=== PATIENT | female | born 1955 | race Caucasian/White ===

== ENCOUNTER 2018-03-11 05:30 | Inpatient (IN) ==
--- NOTE | 2018-03-11 06:18 | Emergency Department Note ---
Disposition Clinical Impression: Peripheral vascular disease of extremity with claudication, Abnormal ankle brachial index (GENO) Disposition: Admitted As Inpatient Condition: Fair Referrals: Emily Washington CNP [Primary Care Provider] - Forms: ED Satisfaction Letter Time of Disposition: 07:50 Extremity Problem HPI - General Chief complaint: ED Extremity Injury, Lower Stated complaint: leg pain both legs Time Seen by Provider: 03/11/18 06:06 Source: patient Limitations: no limitations Nursing Notes Reviewed: Yes Vital Signs Reviewed: Yes - History of Present Illness HPI Narrative: Alert and oriented nontoxic-appearing 63-year-old female presents for evaluation of worsening right lower extremity numbness, tingling, and pain. She has a history of peripheral vascular disease and claudication. In November 2017, this patient was seen by Dr. White for the same. Review of records indicates an aortogram that showed significant stenosis in both the right and left vasculature. Interventions were performed on the right however not on the left. She complains of worsening pain for the past one month but states that she has failed to discuss this problem with either her primary care provider or her vascular specialist, Dr. White. She also states a history of a left foot fracture that occurred approximately 4 weeks ago. She states that she had a mechanical fall which caused the fracture. She complains of persistent and yet worsening left knee pain ever since that fall. She denies any chest pain, shortness of breath, nausea, vomiting, abdominal pain, fever, or noticeable leg swelling/discoloration. Pt Subjective Complaint: extremity pain Onset (ago): month(s) (1) Consistency: Worsening Injury Location: left (knee), right (lower extremity) Pain Scale: 10 Quality: aching Radiation: distal Improves with: nothing Worsens with: range of motion, weight bearing, palpation Associated symptoms: Reports: denies other symptoms. Denies: chest pain, shortness of breath, abdominal pain, back pain, fever, swelling, redness Context: history of peripheral vascular disease - Related Data Home Medications Medication Instructions Recorded Confirmed Clopidogrel Bisulfate [Plavix] 75 mg PO DAILY 06/23/17 01/17/18 Cyanocobalamin (Vitamin B-12) 1,000 mg PO DAILY 06/23/17 01/17/18 [Vitamin B-12] Gabapentin [Neurontin] 400 mg PO BID 06/23/17 01/17/18 Lansoprazole [Prevacid] 30 mg PO DAILY 06/23/17 01/17/18 Metoprolol [Lopressor] 12.5 mg PO BID 06/23/17 01/17/18 Nitroglycerin [Nitrostat] 0.4 mg SL Q5-6MIN PRN 06/23/17 01/17/18 glyBURIDE [GlyBURIDE] 5 mg PO DAILY 06/23/17 01/17/18 Amlodipine Besylate 5 mg PO DAILY 11/17/17 01/17/18 Aspirin [Lo-Dose Aspirin EC] 81 mg PO DAILY 11/17/17 01/17/18 Dulaglutide [Trulicity] 0.75 mg SQ QWEEK 11/17/17 01/17/18 Duloxetine HCl [Cymbalta] 60 mg PO DAILY 11/17/17 01/17/18 Folic Acid 1 mg PO DAILY 11/17/17 01/17/18 HydrOXYzine Pamoate [Vistaril] 25 mg PO BID PRN 11/17/17 01/17/18 Insulin Glargine,Hum.rec.anlog 80 units SQ DAILY 11/17/17 01/17/18 [Toujeo Solostar] Isosorbide MONOnitrate (24 HR) 60 mg PO DAILY 11/17/17 01/17/18 [Imdur] Lisinopril [Zestril] 20 mg PO DAILY 11/17/17 01/17/18 Melatonin 10 mg PO HS 11/17/17 01/17/18 [place]-3/Dha/Epa/Fish Oil [Fish Oil 1 each PO DAILY 11/17/17 01/17/18 1,000 mg Softgel] Omeprazole [PriLOSEC] 20 mg PO DAILY 11/17/17 01/17/18 Pramipexole Di-HCl [Pramipexole 0.5 mg PO HS 11/17/17 01/17/18 Dihydrochloride] Previous Rx's Medication Instructions Recorded HYDROcodone/Acet 5/325 mg [[place] 1 tab PO Q4H PRN 2 Days #10 tab 01/17/18 5-325 mg] Allergies Allergy/AdvReac Type Severity Reaction Status Date / Time metformin [From Glucophage] Allergy Hives Verified 03/11/18 08:11 Rosiglitazone [From Avandia] Allergy Hives Verified 03/11/18 08:11 simvastatin [From Zocor] Allergy Hives Verified 03/11/18 08:11 All systems ED: reviewed and negative except as stated. Constitutional: Denies: fever, chills, weakness, weight change Eyes: Denies: eye pain, eye discharge, vision change ENT ED: Denies: ear pain, throat pain, dental pain, hearing loss, epistaxis, congestion, dysphagia Cardiovascular: Denies: chest pain, palpitations, dyspnea on exertion, edema, syncope Respiratory: Denies: cough, dyspnea, wheezes, hemoptysis, stridor Gastrointestinal: Denies: abdominal pain, nausea, vomiting, diarrhea, constipation, hematemesis, melena, hematochezia Genitourinary: Denies: dysuria, frequency, hematuria, discharge Musculoskeletal: Reports: as per HPI, arthralgia (Left knee pain), myalgia ( Right lower extremity pain). Denies: back pain, neck pain Integumentary: Denies: rash, abrasion, lesions Neurological: Reports: as per HPI, numbness (Right lower extremity numbness). Denies: headache, weakness, paresthesias, confusion, abnormal gait, vertigo Psychiatric: Denies: anxiety, depression, suicidal thoughts, homicidal thoughts , auditory hallucinations, visual hallucinations Endocrine: Denies: fatigue Hematological/Lymphatic: Denies: easy bleeding, easy bruising Allergic/Immunologic: Denies: facial swelling, urticaria Past Medical History - Past Medical History Attestation: Yes The following information was validated with the patient. Source: patient, nursing notes reviewed Medical history: Reports: arthritis, coronary artery disease, CVA, diabetes, GERD, hyperlipidemia, hypertension, myocardial infarction, peripheral artery disease Surgical history: Reports: angioplasty/stent, cholecystectomy, orthopedic, other Psychiatric history: Reports: anxiety [place] [employer] history: Reports: bilateral tubal ligation - Social History Smoking Status: Never smoker Smokeless Tobacco Status: No Alcohol use: Reports: none Drug use: Reports: none Physical Exam - General Limitations: no limitations General appearance: alert - Head Head exam: atraumatic, normocephalic, normal inspection - Eye Eye exam: Present: normal appearance, PERRL, EOMI. Absent: nystagmus - ENT ENT exam: mucous membranes moist - Neck Neck exam: Present: normal inspection, full ROM, trachea midline - Chest Chest inspection: Present: normal inspection, symmetric chest wall rise - Respiratory Respiratory exam: Present: normal lung sounds bilaterally. Absent: respiratory distress, wheezes, stridor, accessory muscle use, prolonged expiratory phase - Cardiovascular Cardiovascular exam: Present: regular rate, normal rhythm, normal heart sounds - Abdominal Exam Abdominal exam: Present: soft, Non-Tender, normal bowel sounds - Expanded Lower Extremity Exam Knee exam: Present: tenderness (Left knee diffusely tender to palpation), pain with valgus, pain with varus, knee extension intact. Absent: full ROM (Range of motion limited by pain, left knee), swelling, deformity, crepitus, erythema, laxity with valgus, laxity with varus Lower leg exam: Present: tenderness (Right lower extremity diffusely tender to palpation without noticeable discoloration or swelling) Foot/toe exam: Present: tenderness (Left foot), tenderness at base of 5th metatarsal (Left foot) Neurovascular/Tendon exam: Present: normal capillary refill, pulse deficit. Absent: extremity cold to touch Gait: not tested/not observed - Back Exam Back exam: Present: normal inspection, full ROM. Absent: tenderness - Neurological Exam Neurological exam: Present: alert, oriented X3 - Psychiatric Psychiatric exam: Present: normal affect, normal mood - Skin Skin exam: Present: warm, dry, intact, normal color. Absent: rash, cyanosis, erythema, pallor Course Course Narrative: Review of records from 11/17/2017 shows that the patient had an abdominal and bilateral aortography with femoropopliteal revascularization by Dr. White. At that time, she had a lesion present in the right superficial femoral with 100% stenosis. An intervention was performed on this lesion. There was also a lesion in the left superficial femoral with 75% stenosis. No intervention was performed on this lesion. There is also a lesion in the left anterior tibial with 100% stenosis. No intervention was performed on that lesion. The patient was placed on Plavix. She states that she is faithful in taking her medications. [id number]: I spoke with Dr. Hagen, vascular surgeon on-call. He recommends placing the patient on a heparin drip, and admitted to the hospitalist service with vascular consult. He recommends against any further imaging at this time. 1485: I spoke with Dr. Archer of the hospitalist service. Dr. Archer has agreed to accept the patient for permission under their care for further treatment and pending vascular consultation. Vital Signs Temperature 97.4 F L 03/11/18 05:31 Pulse Rate 86 03/11/18 05:31 Respiratory Rate 18 03/11/18 05:31 Blood Pressure 179/82 03/11/18 05:31 O2 Sat by Pulse Oximetry 97 03/11/18 05:31 Temperature 97.4 F L 03/11/18 05:31 Pulse Rate 91 03/11/18 08:16 Respiratory Rate 20 03/11/18 08:16 Blood Pressure 122/50 03/11/18 08:16 O2 Sat by Pulse Oximetry 97 03/11/18 08:16 Oxygen Delivery Oxygen Delivery Room Air Extremity Problem, [place] - Medical Records Medical records reviewed: Yes I reviewed the patient's medical records. - Lab Data Lab results reviewed: Yes I reviewed the patient's lab results. Lab results narrative: Laboratory Last Values WBC 5.5 K/mcL (4.3-11.1) 03/11/18 06:33 RBC 4.51 M/mcL (3.82-4.97) 03/11/18 06:33 Hgb 13.4 g/dL (11.5-15.4) 03/11/18 06:33 Hct 40.2 % (35.3-44.9) 03/11/18 06:33 MCV 89.1 fL (83.0-100.0) 03/11/18 06:33 MCH 29.7 pg (28.0-33.3) 03/11/18 06:33 MCHC 33.3 g/dL (31.6-35.5) 03/11/18 06:33 RDW 14.1 % (11.5-14.5) 03/11/18 06:33 Plt Count 159 K/mcL (140-400) 03/11/18 06:33 MPV 10.8 fL (9.4-12.4) 03/11/18 06:33 Immature Gran % 0.0 % (0-4) 03/11/18 06:33 Seg Neutrophils % 40.0 % 03/11/18 06:33 Lymphocytes % 50.5 % 03/11/18 06:33 Monocytes % 6.1 % 03/11/18 06:33 Eosinophils % 2.5 % 03/11/18 06:33 Basophils % 0.9 % 03/11/18 06:33 Neutrophils # 2.2 K/mcL (1.6-8.9) 03/11/18 06:33 Lymphocytes # 2.8 K/mcL (0.6-4.6) 03/11/18 06:33 Monocytes # 0.3 K/mcL (0.0-1.3) 03/11/18 06:33 Eosinophils # 0.1 K/mcL (0.0-0.6) 03/11/18 06:33 Basophils # 0.1 K/mcL (0.0-0.2) 03/11/18 06:33 PT 11.5 Seconds (9.4-12.1) 03/11/18 06:33 INR 1.1 03/11/18 06:33 APTT 32.4 Seconds (26.0-36.0) 03/11/18 06:33 Sodium 134 mEq/L (136-145) L 03/11/18 06:33 Potassium 4.1 mEq/L (3.5-5.1) 03/11/18 06:33 Chloride 100 mEq/L (98-107) 03/11/18 06:33 Carbon Dioxide 29 mEq/L (23-29) 03/11/18 06:33 BUN 9 mg/dL (8-23) 03/11/18 06:33 Creatinine 0.61 mg/dL (0.60-1.20) 03/11/18 06:33 Est GFR ( Amer) > 60 (> 60) 03/11/18 06:33 Est GFR (Non-Af Amer) > 60 (> 60) 03/11/18 06:33 BUN/Creatinine Ratio 15 (6-26) 03/11/18 06:33 Glucose 337 mg/dL (70-105) H 03/11/18 06:33 Calculated Osmolality 290 (280-300) 03/11/18 06:33 Calcium 9.2 mg/dL (8.6-10.3) 03/11/18 06:33 Result diagrams: 03/11/18 06:33 03/11/18 06:33 Lab Results 03/11/18 03/11/18 03/11/18 Range/Units 06:33 06:33 06:33 WBC 5.5 (4.3-11.1) K/mcL RBC 4.51 (3.82-4.97) M/mcL Hgb 13.4 (11.5-15.4) g/dL Hct 40.2 (35.3-44.9) % MCV 89.1 (83.0-100.0) fL MCH 29.7 (28.0-33.3) pg MCHC 33.3 (31.6-35.5) g/dL RDW 14.1 (11.5-14.5) % Plt Count 159 (140-400) K/mcL MPV 10.8 (9.4-12.4) fL Immature Gran % 0.0 (0-4) % Seg Neutrophils % 40.0 % Lymphocytes % 50.5 % Monocytes % 6.1 % Eosinophils % 2.5 % Basophils % 0.9 % Neutrophils # 2.2 (1.6-8.9) K/mcL Lymphocytes # 2.8 (0.6-4.6) K/mcL Monocytes # 0.3 (0.0-1.3) K/mcL Eosinophils # 0.1 (0.0-0.6) K/mcL Basophils # 0.1 (0.0-0.2) K/mcL PT 11.5 (9.4-12.1) Seconds INR 1.1 APTT 32.4 (26.0-36.0) Seconds Sodium 134 L (136-145) mEq/L Potassium 4.1 (3.5-5.1) mEq/L Chloride 100 (98-107) mEq/L Carbon Dioxide 29 (23-29) mEq/L BUN 9 (8-23) mg/dL Creatinine 0.61 (0.60-1.20) mg/dL Est GFR ( Amer) > 60 (> 60) Est GFR (Non-Af Amer) > 60 (> 60) BUN/Creatinine Ratio 15 (6-26) Glucose 337 H (70-105) mg/dL Calculated Osmolality 290 (280-300) Calcium 9.2 (8.6-10.3) mg/dL - Radiology Data Radiology results reviewed: Yes I reviewed the patient's radiology results. Foot X-Ray 03/11/18 06:38 IMPRESSION: Nondisplaced fracture involving the base of the 5th metatarsal. The fracture lines are poorly defined suggesting a subacute injury. D/ / Suresh Broderick MD / Suresh Broderick MD Interpreting Provider: Suresh Broderick MD Knee X-Ray 03/11/18 06:38 IMPRESSION: No acute osseous abnormality of the left knee. D/ / Suresh Broderick MD / Suresh Broderick MD Interpreting Provider: Suresh Broderick MD
[2018-03-11] MEDS ORDERED: *HR* FentaNYL (PF) 100 MCG/2 ML VIAL IVP ONE (06:23)
[2018-03-11 06:42] LABS: Basophils # 0.1 K/mcL (0.0-0.2); Basophils % 0.9 %; Eosinophils # 0.1 K/mcL (0.0-0.6); Eosinophils % 2.5 %; Hematocrit 40.2 % (35.3-44.9); Hemoglobin 13.4 g/dL (11.5-15.4); Lymphocytes # 2.8 K/mcL (0.6-4.6); Lymphocytes % 50.5 %; Mean Corpuscular HGB Conc 33.3 g/dL (31.6-35.5); Mean Corpuscular Hemoglobin 29.7 pg (28.0-33.3); Mean Corpuscular Volume 89.1 fL (83.0-100.0); Mean Platelet Volume 10.8 fL (9.4-12.4); Monocytes # 0.3 K/mcL (0.0-1.3); Monocytes % 6.1 %; Neutrophils # 2.2 K/mcL (1.6-8.9); Platelet Count 159 K/mcL (140-400); Red Blood Count 4.51 M/mcL (3.82-4.97); Red Cell Distribution Width 14.1 % (11.5-14.5)
[2018-03-11 06:47] LABS: INR 1.1; Prothrombin Time 11.5 Seconds (9.4-12.1)
[2018-03-11 06:49] LABS: Activated Partial Thrombo Time 32.4 Seconds (26.0-36.0)
[2018-03-11 06:58] LABS: BUN/Creatinine Ratio 15 (6-26); Blood Urea Nitrogen 9 mg/dL (8-23); Calcium 9.2 mg/dL (8.6-10.3); Carbon Dioxide 29 mEq/L (23-29); Chloride 100 mEq/L (98-107); Glucose 337 mg/dL (70-105); Osmolality,Calculated 290 (280-300); Potassium 4.1 mEq/L (3.5-5.1); Sodium 134 mEq/L (136-145); eGFR For African Americans > 60 (> 60); eGFR For Non-African Americans > 60 (> 60)
--- NOTE | 2018-03-11 07:07 | Emergency Department Note ---
Disposition Clinical Impression: Peripheral vascular disease of extremity with claudication, Abnormal ankle brachial index (GENO) Disposition: Admitted As Inpatient Condition: Fair General Adult HPI - General Chief complaint: ED Extremity Injury, Lower Stated complaint: leg pain both legs Time Seen by Provider: 03/11/18 06:06 Source: patient Limitations: no limitations - History of Present Illness Pain Scale: 7 - Related Data Home Medications Medication Instructions Recorded Confirmed Clopidogrel Bisulfate [Plavix] 75 mg PO DAILY 06/23/17 01/17/18 Cyanocobalamin (Vitamin B-12) 1,000 mg PO DAILY 06/23/17 01/17/18 [Vitamin B-12] Gabapentin [Neurontin] 400 mg PO BID 06/23/17 01/17/18 Lansoprazole [Prevacid] 30 mg PO DAILY 06/23/17 01/17/18 Metoprolol [Lopressor] 12.5 mg PO BID 06/23/17 01/17/18 Nitroglycerin [Nitrostat] 0.4 mg SL Q5-6MIN PRN 06/23/17 01/17/18 glyBURIDE [GlyBURIDE] 5 mg PO DAILY 06/23/17 01/17/18 Amlodipine Besylate 5 mg PO DAILY 11/17/17 01/17/18 Aspirin [Lo-Dose Aspirin EC] 81 mg PO DAILY 11/17/17 01/17/18 Dulaglutide [Trulicity] 0.75 mg SQ QWEEK 11/17/17 01/17/18 Duloxetine HCl [Cymbalta] 60 mg PO DAILY 11/17/17 01/17/18 Folic Acid 1 mg PO DAILY 11/17/17 01/17/18 HydrOXYzine Pamoate [Vistaril] 25 mg PO BID PRN 11/17/17 01/17/18 Insulin Glargine,Hum.rec.anlog 80 units SQ DAILY 11/17/17 01/17/18 [Toujeo Solostar] Isosorbide MONOnitrate (24 HR) 60 mg PO DAILY 11/17/17 01/17/18 [Imdur] Lisinopril [Zestril] 20 mg PO DAILY 11/17/17 01/17/18 Melatonin 10 mg PO HS 11/17/17 01/17/18 [place]-3/Dha/Epa/Fish Oil [Fish Oil 1 each PO DAILY 11/17/17 01/17/18 1,000 mg Softgel] Omeprazole [PriLOSEC] 20 mg PO DAILY 11/17/17 01/17/18 Pramipexole Di-HCl [Pramipexole 0.5 mg PO HS 11/17/17 01/17/18 Dihydrochloride] Previous Rx's Medication Instructions Recorded HYDROcodone/Acet 5/325 mg [[place] 1 tab PO Q4H PRN 2 Days #10 tab 01/17/18 5-325 mg] Allergies Allergy/AdvReac Type Severity Reaction Status Date / Time metformin [From Glucophage] Allergy Hives Verified 03/11/18 08:11 Rosiglitazone [From Avandia] Allergy Hives Verified 03/11/18 08:11 simvastatin [From Zocor] Allergy Hives Verified 03/11/18 08:11 Constitutional: Denies: fever, chills, weakness, weight change Eyes: Denies: eye pain, eye discharge, vision change ENT ED: Denies: ear pain, throat pain, dental pain, hearing loss, epistaxis, congestion, dysphagia Cardiovascular: Denies: chest pain, palpitations, dyspnea on exertion, edema, syncope Respiratory: Denies: cough, dyspnea, wheezes, hemoptysis, stridor Gastrointestinal: Denies: abdominal pain, nausea, vomiting, diarrhea, constipation, hematemesis, melena, hematochezia Genitourinary: Denies: dysuria, frequency, hematuria, discharge Musculoskeletal: Reports: as per HPI, arthralgia (Left knee pain), myalgia ( Right lower extremity pain). Denies: back pain, neck pain Integumentary: Denies: rash, abrasion, lesions Neurological: Reports: as per HPI, numbness (Right lower extremity numbness). Denies: headache, weakness, paresthesias, confusion, abnormal gait, vertigo Psychiatric: Denies: anxiety, depression, suicidal thoughts, homicidal thoughts , auditory hallucinations, visual hallucinations Endocrine: Denies: fatigue Hematological/Lymphatic: Denies: easy bleeding, easy bruising Allergic/Immunologic: Denies: facial swelling, urticaria Past Medical History - Past Medical History Medical history: Reports: arthritis, coronary artery disease, CVA, diabetes, GERD, hyperlipidemia, hypertension, myocardial infarction, peripheral artery disease Surgical history: Reports: angioplasty/stent, cholecystectomy, orthopedic, other Psychiatric history: Reports: anxiety [employer] [employer] history: Reports: bilateral tubal ligation - Social History Smoking Status: Never smoker Smokeless Tobacco Status: No Alcohol use: Reports: none Drug use: Reports: none Physical Exam - General Limitations: no limitations General appearance: alert Course Vital Signs Temperature 97.4 F L 03/11/18 05:31 Pulse Rate 86 03/11/18 05:31 Respiratory Rate 18 03/11/18 05:31 Blood Pressure 179/82 03/11/18 05:31 O2 Sat by Pulse Oximetry 97 03/11/18 05:31 Temperature 97.6 F 03/11/18 09:33 Pulse Rate 86 03/11/18 09:33 Respiratory Rate 16 03/11/18 09:33 Blood Pressure 134/68 03/11/18 09:33 O2 Sat by Pulse Oximetry 98 03/11/18 09:33 Oxygen Delivery Oxygen Delivery Nasal Cannula Medical Decision Making - Lab Data Result diagrams: 03/11/18 06:33 03/11/18 06:33 Lab Results 03/11/18 03/11/18 03/11/18 Range/Units 06:33 06:33 06:33 WBC 5.5 (4.3-11.1) K/mcL RBC 4.51 (3.82-4.97) M/mcL Hgb 13.4 (11.5-15.4) g/dL Hct 40.2 (35.3-44.9) % MCV 89.1 (83.0-100.0) fL MCH 29.7 (28.0-33.3) pg MCHC 33.3 (31.6-35.5) g/dL RDW 14.1 (11.5-14.5) % Plt Count 159 (140-400) K/mcL MPV 10.8 (9.4-12.4) fL Immature Gran % 0.0 (0-4) % Seg Neutrophils % 40.0 % Lymphocytes % 50.5 % Monocytes % 6.1 % Eosinophils % 2.5 % Basophils % 0.9 % Neutrophils # 2.2 (1.6-8.9) K/mcL Lymphocytes # 2.8 (0.6-4.6) K/mcL Monocytes # 0.3 (0.0-1.3) K/mcL Eosinophils # 0.1 (0.0-0.6) K/mcL Basophils # 0.1 (0.0-0.2) K/mcL PT 11.5 (9.4-12.1) Seconds INR 1.1 APTT 32.4 (26.0-36.0) Seconds Sodium 134 L (136-145) mEq/L Potassium 4.1 (3.5-5.1) mEq/L Chloride 100 (98-107) mEq/L Carbon Dioxide 29 (23-29) mEq/L BUN 9 (8-23) mg/dL Creatinine 0.61 (0.60-1.20) mg/dL Est GFR ( Amer) > 60 (> 60) Est GFR (Non-Af Amer) > 60 (> 60) BUN/Creatinine Ratio 15 (6-26) Glucose 337 H (70-105) mg/dL Calculated Osmolality 290 (280-300) Calcium 9.2 (8.6-10.3) mg/dL Critical Care Time Critical Care Time: Yes Total Critical Care Time: 30 Attestation: The high probability of a clinically significant, sudden or life threatening deterioration of the [] system(s) required my full and direct attention, intervention and personal management. The aggregate critical care time was [] minutes. This time is in addition to time spent performing reported procedures but includes the following: [] Data Review and interpretation [] Patient assessment and monitoring of vital signs [] Documentation [] Medication orders and management Attestation Statement - Attestation Attestation: For this encounter, I have reviewed the OCEANOLOGIST or PA documentation, treatment plan, and medical decision making; and I have had face to face time with this patient. [id number] time provided Patient arrives with leg pain. History of previous angioplasty due to peripheral arterial disease. Appears in no acute distress on exam. Evaluated in conjunction with the mid-level provider Hang Huerta
[2018-03-11] MEDS ORDERED: *HR* Heparin 5,000 UNIT/ML VIAL IVP ONE (07:49)
[2018-03-11] MEDS ORDERED: *HR* Heparin 5,000 UNIT/ML VIAL IVP PRN ×2 (07:49)
[2018-03-11] MEDS: Heparin 25,000 UNIT/500 ML D5W 25,000 UNIT/500 ML BAG IVC SCH (08:37)
--- NOTE | 2018-03-11 09:57 | Vascular/Endovasc Consult Note ---
Date of Encounter: 03/11/18 Time of Encounter: 09:40 Assessment and Plan (1) Atherosclerosis of right lower extremity with rest pain Current Visit: Yes Status: Acute Qualifiers: Peripheral atherosclerosis artery type: [place] artery Qualified Code(s): I70.221 - Atherosclerosis of [place] arteries of extremities with rest pain, right leg - History of Present Illness Consult date: 03/11/18 Requesting physician: Triston Archer Consult reason: Ischemic rest pain right foot. History of present illness: Ms. Ruiz is a 63 year old female with a 2 to three-week history of progressive ischemic rest pain of her right foot. She has undergone prior endovascular intervention for similar symptomatology. 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 She has long-standing diabetes which is fairly uncontrolled. She is currently on dual antiplatelet therapy and a daily statin. I have placed the patient on a heparin drip and presume her symptoms will slightly improved somewhat. Dr. White will be around at the start of this week and decide as to what further intervention need be performed. Should she have increasing progressive symptoms or loss of Doppler signals today, I would be more than happy to consider immediate intervention. Past Med Surg Social Fam HX - Past Medical History Medical history: arthritis, coronary artery disease, CVA, diabetes, GERD, hyperlipidemia, hypertension, myocardial infarction, peripheral artery disease Psychiatric history: anxiety - Past Surgical History Surgical History: angioplasty/stent, cholecystectomy, orthopedic, other - Social History Smoking Status: Never smoker Smokeless Tobacco Status: No Alcohol use: none Drug use: none Medications and Allergies Clopidogrel Bisulfate [Plavix] 75 mg PO DAILY 06/23/17 [History] Cyanocobalamin (Vitamin B-12) [Vitamin B-12] 1,000 mg PO DAILY 06/23/17 [History ] Gabapentin [Neurontin] 400 mg PO BID 06/23/17 [History] Lansoprazole [Prevacid] 30 mg PO DAILY 06/23/17 [History] Metoprolol [Lopressor] 12.5 mg PO BID 06/23/17 [History] Nitroglycerin [Nitrostat] 0.4 mg SL Q5-6MIN PRN 06/23/17 [History] glyBURIDE [GlyBURIDE] 5 mg PO DAILY 06/23/17 [History] Amlodipine Besylate 5 mg PO DAILY 11/17/17 [History] Aspirin [Lo-Dose Aspirin EC] 81 mg PO DAILY 11/17/17 [History] Dulaglutide [Trulicity] 0.75 mg SQ QWEEK 11/17/17 [History] Duloxetine HCl [Cymbalta] 60 mg PO DAILY 11/17/17 [History] Folic Acid 1 mg PO DAILY 11/17/17 [History] HydrOXYzine Pamoate [Vistaril] 25 mg PO BID PRN 11/17/17 [History] Insulin Glargine,Hum.rec.anlog [Toujeo Solostar] 80 units SQ DAILY 11/17/17 [ History] Isosorbide MONOnitrate (24 HR) [Imdur] 60 mg PO DAILY 11/17/17 [History] Lisinopril [Zestril] 20 mg PO DAILY 11/17/17 [History] Melatonin 10 mg PO HS 11/17/17 [History] [place]-3/Dha/Epa/Fish Oil [Fish Oil 1,000 mg Softgel] 1 each PO DAILY 11/17/17 [ History] Omeprazole [PriLOSEC] 20 mg PO DAILY 11/17/17 [History] Pramipexole Di-HCl [Pramipexole Dihydrochloride] 0.5 mg PO HS 11/17/17 [History] HYDROcodone/Acet 5/325 mg [[place] 5-325 mg] 1 tab PO Q4H PRN 2 Days #10 tab 01/17 [Rx] 3 Allergy/AdvReac Type Severity Reaction Status Date / Time metformin [From Glucophage] Allergy Hives Verified 03/11/18 08:11 Rosiglitazone [From Avandia] Allergy Hives Verified 03/11/18 08:11 simvastatin [From Zocor] Allergy Hives Verified 03/11/18 08:11 All Systems Review: The remainder of the systems were reviewed and are negative Exam Vital Signs, Last 4 Hours Resp BP 03/11/18 08:42 20 116/55 General: Present: No Apparent Distress HEENT: Present: Trachea midline, Pupils equal Neck: Absent: JVD, Lymphadenopathy, Left Carotid bruit, Right Carotid bruit Cardiac: Present: Reg Rate and Rhythm, Normal S1 and S2, No Murmur Lungs: Present: Normal Breath Sounds, No Wheeze, Rales, Rhonchi Neuro: Present: Alert and responsive, No focal deficits noted Vascular: Present: Normal capillary refill, Pulse, absent (There are good femoral pulses bilaterally. There are no palpable popliteal pulses on either side. There are no pedal pulses in either foot, although there are monophasic Doppler signals at post posterior tibial vessels.) Skin: Present: No rashes noted on visualized skin Musculoskeletal: Present: Other (Her left knee and left foot are tender secondary to recent fall.) Consult Discharge Plan - Plan Referrals: Emily Washington, OUTSIDE CUTTER [Primary Care Provider] -
[2018-03-11] MEDS ORDERED: Naloxone 0.4 MG/ML INJ IVP PRN (10:52)
[2018-03-11] MEDS ORDERED: hydrOXYzine pamoate 25 MG CAPSULE PO PRN (10:58)
[2018-03-11] MEDS ORDERED: Nitroglycerin 0.4 MG TAB.SUBL SL PRN (10:58)
[2018-03-11] MEDS ORDERED: (Dulaglutide [Trulicity] 0.75 MG) SQ SCH (11:00)
[2018-03-11] MEDS ORDERED: D5% in Water 1,000 ML IVC PRN (11:04)
[2018-03-11] MEDS ORDERED: Dextrose Gel 15 GM/37.5 ML TUBE PO PRN ×2 (11:04)
[2018-03-11] MEDS ORDERED: *HR* Dextrose 50 % in Water (Syg) 50 ML SYRINGE IVP PRN (11:04)
--- NOTE | 2018-03-11 11:20 | Internal Med History&Physical ---
Date of Encounter: 03/11/18 Time of Encounter: 11:04 Internal Medicine - H&P: HPI Chief complaint: Tingling numbness in the right lower extremity Admitted From: Emergency Dept Plans for Post Hospital Care: Home History of present illness: Ms. Ruiz is a 63 year old female with a background medical history of for diabetes, hypertension, dyslipidemia, previous coronary artery disease, previous myocardial infarction, she has a strong history of a peripheral artery disease, patient has a history of cerebrovascular accident. Patient also has a extensive vascular workup done by Dr. Gaytan in the recent past. History of present illness: Patient presented to emergency room for a progressive tingling numbness in the right lower extremity for more than 2. Patient's Symptoms Started Getting Worse to the Extent That Patient was able to move the right lower extremity with the great difficulty. In view of the persistent deterioration patient decided to come to the emergency room for further help. Patient denies chest pain, nausea, vomiting, diarrhea and dizziness Workup in the emergency room: Patient was evaluated in the emergency room. Baseline labs were drawn. On physical examination it was noted that patient has a absent pulses on the right lower extremity. Reason for admission: Possible arterial/venous occlusion in the right lower extremity, in a patient who has multiple comorbid conditions responsible for progressive atherosclerosis/plaque. Family history: Noncontributory Past Med Surg Social Fam HX - Past Medical History Medical history: arthritis, coronary artery disease, CVA, diabetes, GERD, hyperlipidemia, hypertension, myocardial infarction, peripheral artery disease Psychiatric history: anxiety - Past Surgical History Surgical History: angioplasty/stent, cholecystectomy, orthopedic, other - Social History Smoking Status: Never smoker Smokeless Tobacco Status: No Alcohol use: none Drug use: none Internal Medicine - H&P: Meds Clopidogrel Bisulfate [Plavix] 75 mg PO DAILY 06/23/17 [History] Cyanocobalamin (Vitamin B-12) [Vitamin B-12] 1,000 mg PO DAILY 06/23/17 [History ] Gabapentin [Neurontin] 400 mg PO BID 06/23/17 [History] Lansoprazole [Prevacid] 30 mg PO DAILY 06/23/17 [History] Metoprolol [Lopressor] 12.5 mg PO BID 06/23/17 [History] Nitroglycerin [Nitrostat] 0.4 mg SL Q5-6MIN PRN 06/23/17 [History] glyBURIDE [GlyBURIDE] 5 mg PO DAILY 06/23/17 [History] Amlodipine Besylate 5 mg PO DAILY 11/17/17 [History] Aspirin [Lo-Dose Aspirin EC] 81 mg PO DAILY 11/17/17 [History] Dulaglutide [Trulicity] 0.75 mg SQ QWEEK 11/17/17 [History] Duloxetine HCl [Cymbalta] 60 mg PO DAILY 11/17/17 [History] Folic Acid 1 mg PO DAILY 11/17/17 [History] HydrOXYzine Pamoate [Vistaril] 25 mg PO BID PRN 11/17/17 [History] Insulin Glargine,Hum.rec.anlog [Toujeo Solostar] 80 units SQ DAILY 11/17/17 [ History] Isosorbide MONOnitrate (24 HR) [Imdur] 60 mg PO DAILY 11/17/17 [History] Lisinopril [Zestril] 20 mg PO DAILY 11/17/17 [History] Melatonin 10 mg PO HS 11/17/17 [History] [place]-3/Dha/Epa/Fish Oil [Fish Oil 1,000 mg Softgel] 1 each PO DAILY 11/17/17 [ History] Omeprazole [PriLOSEC] 20 mg PO DAILY 11/17/17 [History] Pramipexole Di-HCl [Pramipexole Dihydrochloride] 0.5 mg PO HS 11/17/17 [History] HYDROcodone/Acet 5/325 mg [[place] 5-325 mg] 1 tab PO Q4H PRN 2 Days #10 tab 01/17 [Rx] 3 Allergy/AdvReac Type Severity Reaction Status Date / Time metformin [From Glucophage] Allergy Hives Verified 03/11/18 08:11 Rosiglitazone [From Avandia] Allergy Hives Verified 03/11/18 08:11 simvastatin [From Zocor] Allergy Hives Verified 03/11/18 08:11 All Systems PM: A 10-system review of systems was performed and is negative for pertinent findings except as documented above in the HPI. - Constitutional Constitutional: no chills, no fever(s), no night sweats - EENT Eyes: no change in vision, no discharge, no pain, no photophobia Ears: no ear discharge, no ear pain, no tinnitus Nose, mouth and throat: no dysphagia, no nasal discharge, no neck pain, no sore throat - Cardiovascular Cardiovascular ROS IM: no chest pain, no diaphoresis, no dyspnea, no lightheadedness, no palpitations, no syncope - Respiratory Respiratory: no cough, no dyspnea, no wheezing, no excessive phlegm production - Gastrointestinal Gastrointestinal: no abdominal pain, no diarrhea, no hematemesis, no hematochezia, no melena, no nausea, no vomiting - Genitourinary Genitourinary: no change in urinary stream, no dysuria, no flank pain, no hematuria - Musculoskeletal Musculoskeletal ROS IM: no numbness, no tingling - Integumentary Integumentary IM: no rash, no unusual bruising - Neurological Neurological ROS: no confusion, no convulsions, no focal weakness, no numbness, no tingling, no tremor(s) Additional comments: Worsening tingling numbness in the right lower extremity. Difficulty in movement of the right lower extremity progressively worsening. - Hematologic/Lymphatic Hematologic/Lymphatic: no easy bruising - Constitutional Vitals: Temp Pulse Resp BP Pulse Ox 97.6 F 86 16 134/68 98 03/11/18 09:33 03/11/18 09:33 03/11/18 09:33 03/11/18 09:33 03/11/18 09:33 General appearance: Present: A&O X 3, pleasant, no acute distress, answers questions appropriately - Head Head exam: Present: atraumatic, normocephalic - Eye Eye exam: Present: PERRL, conjuntiva pink, sclera anicteric Pupils: Present: PERRL - Neck Neck exam general surgery: Present: supple, trachea midline. Absent: lymphadenopathy - Respiratory Respiratory exam: Present: CTAB. Absent: accessory muscle use, rales, rhonchi, wheezes - Cardiovascular Cardiovascular exam: Present: RRR, +S1, +S2. Absent: diastolic murmur, gallop, rubs, systolic murmur - GI/Abdominal GI/Abdominal exam: Present: normal bowel sounds, soft, no peritoneal signs. Absent: distended, tenderness - Extremities Exam Extremities exam: Present: warm, radial pulses palpable and symmetrical. Absent : calf tenderness, cyanotic, pedal edema - Neurological Exam Neurological exam: Present: CN II-XII intact, oriented X3, no focal deficits. Absent: pronater drift, facial droop, speech deficit - Skin Skin exam: Present: dry, intact Internal Med - H&P Results - Labs CBC & Chem 7: 03/11/18 06:33 03/11/18 06:33 - Assessment and plan (1) Peripheral vascular disease of extremity with claudication Current Visit: Yes Status: Acute Assessment and plan: 63/female Multiple comorbid conditions. Admitted with right lower extremity claudication. Noted that week Doppler signals in the posterior tibial/absent dorsalis pedis on right side Assessment: Right-sided lower extremity claudication in a patient who has peripheral vascular disease secondary to multiple comorbid conditions like diabetes/ hypertension/dyslipidemia Plan: Admit as inpatient. Diabetic diet. Nothing by mouth from midnight. Labs in the morning. PT/INR. Resume home medication. Anticoagulation: Heparin drip. Antiplatelet: Aspirin/Plavix. Resume home medication. Vascular surgery on the board. We will follow the recommendations from vascular surgery I have examined this patient in the . Along with me patient's nurse was present and upon revisit to patient, I met vascular surgeon at bedside. (2) Atherosclerosis of right lower extremity with rest pain Current Visit: Yes Status: Acute Assessment and plan: See above Qualifiers: Peripheral atherosclerosis artery type: [place] artery Qualified Code(s): I70.221 - Atherosclerosis of [place] arteries of extremities with rest pain, right leg (3) Diabetes mellitus Current Visit: Yes Status: Acute Assessment and plan: Patient is known to have uncontrolled diabetes mellitus. At this point we will resume home medication. We will follow the orders from subcutaneous insulin order set. 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 We will closely monitor patient's blood pressure. Patient blood pressure is acceptable range at this point. Qualifiers: Hypertension type: essential hypertension Qualified Code(s): I10 - Essential (primary) hypertension (5) DVT prophylaxis Current Visit: Yes Status: Acute Assessment and plan: Heparin drip Medical decision making: This patient has a moderate to severe risk of worsening in spite of being on appropriate medication due to the underlying complex comorbid condition. - Time Spent With Patient Total time spent is greater than 50% in coordination of care (as documented) at patient's floor/unit and/or counseling patient:
[2018-03-11] MEDS: Insulin LISPRO 300 UNITS/3 ML VIAL SQ SCH ×2 (12:05→17:14)
[2018-03-11] MEDS: *HR* HYDROcodone/Acet 5/325 mg TABLET PO PRN ×3 (12:06→20:38)
[2018-03-11 15:01] LABS: Basophils % 0.7 %; Eosinophils # 0.1 K/mcL (0.0-0.6); Eosinophils % 2.3 %; Hematocrit 40.1 % (35.3-44.9); Hemoglobin 13.4 g/dL (11.5-15.4); Immature Granulocytes % 0.2 % (0-4); Lymphocytes # 2.3 K/mcL (0.6-4.6); Lymphocytes % 52.5 %; Mean Corpuscular HGB Conc 33.4 g/dL (31.6-35.5); Mean Corpuscular Hemoglobin 29.8 pg (28.0-33.3); Mean Corpuscular Volume 89.1 fL (83.0-100.0); Mean Platelet Volume 10.7 fL (9.4-12.4); Monocytes # 0.3 K/mcL (0.0-1.3); Monocytes % 5.7 %; Neutrophils # 1.7 K/mcL (1.6-8.9); Platelet Count 159 K/mcL (140-400); Segmented Neutrophils % 38.6 %
[2018-03-11 15:21] LABS: BUN/Creatinine Ratio 13 (6-26); Blood Urea Nitrogen 8 mg/dL (8-23); Calcium 9.4 mg/dL (8.6-10.3); Carbon Dioxide 30 mEq/L (23-29); Chloride 100 mEq/L (98-107); Glucose 254 mg/dL (70-105); Osmolality,Calculated 287 (280-300); Sodium 135 mEq/L (136-145); eGFR For African Americans > 60 (> 60); eGFR For Non-African Americans > 60 (> 60)
[2018-03-11] MEDS: Isosorbide MONOnitrate (24 HR) 60 MG TAB.ER.24H PO SCH (16:05)
[2018-03-11] MEDS: amLODIPine 5 MG TABLET PO SCH (16:06)
[2018-03-11] MEDS: Lisinopril 20 MG TABLET PO SCH (16:06)
[2018-03-11] MEDS: Gabapentin 400 MG CAPSULE PO SCH (20:32)
[2018-03-11] MEDS: Melatonin 3 MG TABLET PO SCH (20:33)
[2018-03-12] MEDS: *HR* HYDROcodone/Acet 5/325 mg TABLET PO PRN ×2 (01:08→08:46)
[2018-03-12 02:21] LABS: Alanine Aminotransferase 18 Units/L (7-52); Albumin 3.4 g/dL (3.5-5.7); Albumin/Globulin Ratio 1.1 (1.1-2.2); Alkaline Phosphatase 107 Units/L (34-104); Aspartate Amino Transferase 30 Units/L (13-39); BUN/Creatinine Ratio 18 (6-26); Bilirubin,Total 0.4 mg/dL (0.3-1.0); Blood Urea Nitrogen 11 mg/dL (8-23); Calcium 9.2 mg/dL (8.6-10.3); Carbon Dioxide 29 mEq/L (23-29); Chloride 100 mEq/L (98-107); Chol/HDL Ratio 4.4 (0-4.9); Cholesterol 142 mg/dL (< 200); Globulin 3.2 g/dL (2.4-3.5); Glucose 313 mg/dL (70-105); HDL Cholesterol 32 mg/dL (40-59); LDL Cholesterol,Calculated 71 mg/dL (0-99); Magnesium 1.8 mg/dL (1.6-2.6); Osmolality,Calculated 287 (280-300); Phosphorous 3.9 mg/dL (2.7-4.5); Potassium 4.2 mEq/L (3.5-5.1); Sodium 133 mEq/L (136-145); Total Protein 6.6 g/dL (6.4-8.9); Triglycerides 195 mg/dL (< 150); eGFR For African Americans > 60 (> 60); eGFR For Non-African Americans > 60 (> 60)
[2018-03-12 03:05] LABS: Basophils % 0.7 %; Eosinophils # 0.2 K/mcL (0.0-0.6); Eosinophils % 2.6 %; Hematocrit 37.9 % (35.3-44.9); Hemoglobin 12.5 g/dL (11.5-15.4); Immature Granulocytes % 0.2 % (0-4); Lymphocytes # 2.8 K/mcL (0.6-4.6); Lymphocytes % 47.5 %; Mean Corpuscular Hemoglobin 29.5 pg (28.0-33.3); Mean Corpuscular Volume 89.4 fL (83.0-100.0); Mean Platelet Volume 11.4 fL (9.4-12.4); Monocytes # 0.3 K/mcL (0.0-1.3); Monocytes % 5.6 %; Neutrophils # 2.6 K/mcL (1.6-8.9); Platelet Count 163 K/mcL (140-400); Red Blood Count 4.24 M/mcL (3.82-4.97); Red Cell Distribution Width 13.9 % (11.5-14.5); Segmented Neutrophils % 43.4 %
[2018-03-12 05:01] LABS: INR 1.1; Prothrombin Time 11.9 Seconds (9.4-12.1)
[2018-03-12 05:04] LABS: Activated Partial Thrombo Time 62.3 Seconds (26.0-36.0)
[2018-03-12] MEDS: Insulin LISPRO 300 UNITS/3 ML VIAL SQ SCH ×2 (08:45→11:35)
[2018-03-12] MEDS ORDERED: Isosorbide MONOnitrate (24 HR) 60 MG TAB.ER.24H PO SCH (09:00)
[2018-03-12] MEDS ORDERED: Lisinopril 20 MG TABLET PO SCH (09:00)
[2018-03-12] MEDS ORDERED: amLODIPine 5 MG TABLET PO SCH (09:00)
[2018-03-12] MEDS ORDERED: Insulin DETEMIR 100 UNIT/ML X5UNITS SQ SCH (09:00)
[2018-03-12] MEDS ORDERED: (Omega-3/Dha/Epa/Fish Oil [Fish Oil 1,000 Mg Softgel]) PO SCH (09:00)
[2018-03-12] MEDS: Heparin 25,000 UNIT/500 ML D5W 25,000 UNIT/500 ML BAG IVC SCH (09:15)
[2018-03-12] MEDS: Folic Acid 1 MG TABLET PO SCH (09:26)
[2018-03-12] MEDS: Gabapentin 400 MG CAPSULE PO SCH ×2 (09:26→20:01)
[2018-03-12] MEDS: amLODIPine 5 MG TABLET PO SCH (09:26)
[2018-03-12] MEDS: Lisinopril 20 MG TABLET PO SCH (09:26)
[2018-03-12] MEDS: Cyanocobalamin (B-12) 1,000 MCG TABLET PO SCH (09:26)
[2018-03-12] MEDS: Aspirin Enteric Coated 81 MG Tablet PO SCH (09:27)
[2018-03-12] MEDS: Isosorbide MONOnitrate (24 HR) 60 MG TAB.ER.24H PO SCH (09:27)
--- NOTE | 2018-03-12 14:22 | Vascular/[facility]as Progress Note ---
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 Nov 2017 last seen in Dec 2017 in clinic without symptoms - Physical Examination Vascular: Present: Capillary refill delayed, Pulse, absent Abdomen: Present: Soft Results 03/12/18 01:22 03/12/18 01:22 Lab Results, Last 24 hours 03/11/18 03/11/18 03/11/18 14:42 14:42 14:42 WBC 4.4 Hgb 13.4 Hct 40.1 Plt Count 159 INR APTT 59.2 H D Sodium 135 L Potassium 4.0 Chloride 100 Carbon Dioxide 30 H BUN 8 Creatinine 0.61 Glucose 254 H Calcium 9.4 Magnesium Total Bilirubin AST ALT Alkaline Phosphatase Troponin I 03/11/18 03/11/18 03/12/18 17:12 20:28 01:22 WBC Hgb Hct Plt Count INR APTT 53.3 H Sodium Potassium Chloride Carbon Dioxide BUN Creatinine Glucose Calcium Magnesium Total Bilirubin AST ALT Alkaline Phosphatase Troponin I < 0.03 < 0.03 03/12/18 03/12/18 03/12/18 01:22 01:22 03:54 WBC 5.9 Hgb 12.5 Hct 37.9 Plt Count 163 INR 1.1 APTT 62.3 H Sodium 133 L Potassium 4.2 Chloride 100 Carbon Dioxide 29 BUN 11 Creatinine 0.61 Glucose 313 H Calcium 9.2 Magnesium 1.8 Total Bilirubin 0.4 AST 30 ALT 18 Alkaline Phosphatase 107 H Troponin I 03/12/18 09:20 WBC Hgb Hct Plt Count INR APTT 58.4 H Sodium Potassium Chloride Carbon Dioxide BUN Creatinine Glucose Calcium Magnesium Total Bilirubin AST ALT Alkaline Phosphatase Troponin I - Imaging / Other Tests Non Invasive Vascular Testing: report reviewed Consult Discharge Plan - Plan Referrals: Emily Washington, [facility] [employer] [Primary Care Provider] -
--- NOTE | 2018-03-12 14:29 | Internal Med Progress Note ---
Date of Encounter: 03/12/18 Time of Encounter: 14:28 - Assessment and plan (1) Diabetes mellitus Current Visit: Yes Status: Acute Assessment and plan: She is hyperglycemic at this time but is NPO for procedure. Will treat with insulin and follow accuchecks. Takes 80 units of insulin at night so will need restarted as well when she is taking PO well. Qualifiers: Diabetes mellitus type: type 2 Diabetes mellitus senior care insulin use: with senior care use Diabetes mellitus complication status: with circulatory complication Diabetes mellitus complication detail: with peripheral angiopathy without gangrene Qualified Code(s): E11.51 - Type 2 diabetes mellitus with diabetic peripheral angiopathy without gangrene; Z79.4 - parts counterman (current) use of insulin; Z79.4 - parts counterman (current) use of insulin; Z79.4 - parts counterman (current) use of insulin; Z79.4 - parts counterman (current) use of insulin (2) Peripheral vascular disease of extremity with claudication Current Visit: Yes Status: Acute Assessment and plan: Pt with claudication and concern for arterial occlusion. To have angiogram today. (3) Atherosclerosis of right lower extremity with rest pain Current Visit: Yes Status: Acute Assessment and plan: Chronic issue Qualifiers: Peripheral atherosclerosis artery type: [place] artery Qualified Code(s): I70.221 - Atherosclerosis of [place] arteries of extremities with rest pain, right leg (4) Hypertension Current Visit: Yes Status: Acute Assessment and plan: Monitoring blood pressure. Continue current meds. Qualifiers: Hypertension type: essential hypertension Qualified Code(s): I10 - Essential (primary) hypertension (5) DVT prophylaxis Current Visit: Yes Status: Acute - Time Spent With Patient Total time spent is greater than 50% in coordination of care (as documented) at patient's floor/unit and/or counseling patient: - Subjective Interval history: Ms Ruiz is currently admitted for acute claudication and PVD with concern for arterial occlusion. She remains moderate to high risk due to potential for worsening clinical status. Ms Ruiz is doing OK but continues to have pain in foot. She is to go have angiogram today. Heparin stopped today. No fever. No CP or SOB. No GI issues. - Constitutional Vitals: Temp Pulse Resp BP Pulse Ox 98 F 79 14 134/66 95 03/12/18 06:48 03/12/18 06:48 03/12/18 06:48 03/12/18 06:48 03/12/18 06:48 General appearance: Present: A&O X 3, pleasant, answers questions appropriately - Head Head exam: Present: normocephalic - Eye Eye exam: Present: conjuntiva pink - ENT ENT exam: Present: mucous membranes dry - Respiratory Respiratory exam: Present: CTAB. Absent: rales, rhonchi, wheezes - Cardiovascular Cardiovascular exam: Present: RRR. Absent: tachycardia - GI/Abdominal GI/Abdominal exam: Present: soft. Absent: tenderness - Extremities Exam Additional comments: RLE cool. - Neurological Exam Neurological exam: Present: alert, oriented X3 - Skin Skin exam: Present: dry, warm Internal Medicine: Result - Labs CBC & Chem 7: 03/12/18 01:22 03/12/18 01:22 Labs: Short CBC 03/11/18 03/12/18 Range/Units 14:42 01:22 WBC 4.4 5.9 (4.3-11.1) K/mcL Hgb 13.4 12.5 (11.5-15.4) g/dL Hct 40.1 37.9 (35.3-44.9) % Plt Count 159 163 (140-400) K/mcL Neutrophils # 1.7 2.6 (1.6-8.9) K/mcL BMP 03/11/18 03/12/18 14:42 01:22 Sodium 135 L 133 L Potassium 4.0 4.2 Chloride 100 100 Carbon Dioxide 30 H 29 BUN 8 11 Creatinine 0.61 0.61 Glucose 254 H 313 H Calcium 9.4 9.2 Cardiac Enzymes 03/11/18 03/12/18 Range/Units 17:12 01:22 Troponin I < 0.03 < 0.03 (< 0.04) ng/mL Liver Function 03/12/18 Range/Units 01:22 Total Bilirubin 0.4 (0.3-1.0) mg/dL AST 30 (13-39) Units/L ALT 18 (7-52) Units/L Alkaline Phosphatase 107 H (34-104) Units/L Albumin 3.4 L (3.5-5.7) g/dL - ABG Interpretation ABG results: PT/INR, D-dimer PT 11.9 Seconds (9.4-12.1) 03/12/18 03:54 Consult Discharge Plan - Plan Referrals: Emily Washington, [facility] [Primary Care Provider] -
--- NOTE | 2018-03-12 15:07 | Pre-Sedation Evaluation ---
Pre-sedation evaluation - Pre-sedation checklist Procedure: periheral angiogram Recent Vitals: Last Vital Signs Temp 98 F 03/12/18 06:48 Pulse 79 03/12/18 06:48 Resp 14 03/12/18 06:48 BP 134/66 03/12/18 06:48 Pulse Ox 95 03/12/18 06:48 H&P (including ROS) documented in medical record: Yes Previous reaction to sedatives/anesthetics: No Dietary Status: NPO after Midnight Dentition: No loose teeth or bridges ASA Classification *see protocol: CLASS III-Severe systemic disease Plan of Care: Pt appropriate candidate for procedure/moderate/conscious sedation , Risks/benefits of procedure/sedation discussed w/ patient/family
[2018-03-12] MEDS ORDERED: Isovue-300 200 mL Infus..BTL IV ONE ×2 (15:26→16:25)
[2018-03-12] MEDS ORDERED: 0.9 % Sodium Chloride 1,000 ML ONE ×2 (15:26→15:34)
[2018-03-12] MEDS ORDERED: *HR* Heparin 10,000 UNIT/10 ML VIAL ONE (15:26)
[2018-03-12] MEDS ORDERED: Heparin 1,000 UNITS/500 mL 500 ML ONE (15:26)
[2018-03-12] MEDS ORDERED: *HR* Midazolam HCl 2 MG/2 ML VIAL ONE (15:52)
[2018-03-12] MEDS ORDERED: *HR* FentaNYL (PF) 100 MCG/2 ML VIAL ONE ×2 (15:52→17:08)
[2018-03-12] MEDS ORDERED: Acetaminophen 325 MG TABLET PO PRN (17:30)
[2018-03-12] MEDS ORDERED: *HR* HYDROcodone/Acet 5/325 mg TABLET PO PRN (17:30)
[2018-03-12] MEDS ORDERED: Ondansetron 4 MG/2 ML VIAL IVP PRN (17:30)
--- NOTE | 2018-03-12 17:30 | Procedure Note ---
Date of procedure: 03/12/18 Pre-op diagnosis: Ischemic rest pain right lower extremity Post-op diagnosis: same Procedure: Abdominal aortogram Aortogram with bilateral lower extremity runoff Standard and drug coated balloon angioplasty of right superficial femoral artery Anesthesia: MAC Surgeon: Tesfaye White Was there an clinical research assistant present: No Estimated blood loss (cc): 0 Specimen: 0 Pathology: none sent Condition: stable Disposition: floor (Continue Plavix therapy indefinitely)
--- NOTE | 2018-03-12 17:53 | Invasive Diagnostic Lab Proc ---
Name: Kika Ruiz Date of Study: 03/12/2018 Date: 1955 Ht: 155.0 in Medical Record#: [id number] Age: 63 Wt: 80.2 lb Gender: Female BSA: 1.79 Order #: [id number] BMI: 33.38 Physicians Performing MD: Tesfaye White MD, FACS Referring MD: Referring MD: Staff Name [facility] Fredi Robles RN Film Laboratory Technician Valerie Bullock RT (R) Scrub Iona Jeff RN Film Laboratory Technician Indications Peripheral Vasc Disease Ischemic lower extremity Procedures Performed AORTOGRAPHY, ABDOMINAL S&I AORTOGRAPHY W/RUNOFF BILAT S&I FEM/POPL REVAS W/TLA Pre-Procedure Checklist Informed consent is complete signed and on chart. H&P is on chart. ID band is on and ID verified with patient. Patient NPO for procedure The procedure was described for the patient and questions were answered. Blood Pressure: 134/66 ECG is on chart. Rhythm: NSR Plan of Care Patient will tolerate the procedure without complications. Adequate level of comfort will be maintained. Hemodynamics will remain stable Patient will recover from procedure without complications. Respiratory function will be maintained. Cardiac rhythm will remain stable. Patient temperature will be maintained. Patient and/or family have verbalized understanding of the procedure. Patient Education Chief Complaint/Reason for Test: Peripheral angiogram Developmental Category: Adult (18-64 years) Learning Barriers: None Education Needs: Procedure Education Method: Verbal Information Taught: Peripheral angiogram Educational Evaluation: Able to repeat information Intravenous Access Time IV Size Location DC'd Fluid/Drip Rate Units RN 20g 1 11/09" Patent On Arrival Rt Antecubital 0.9NaCl Fredi Robles RN Allergies metformin Rosiglitazone MORPHINE, GLUCOPHAGE XL, ZOCOR Metformin Hydrochloride simvastatin Vital Signs Time BP Systolic BP Diastolic HR O2 Sats ASA 134 66 79 95 03:48 PM 03:48 PM 04:05 PM 04:21 PM 04:36 PM 04:52 PM 05:07 PM 04:12 PM 113 66 81 99 04:17 PM 114 59 80 94 04:22 PM 105 62 79 96 04:27 PM 106 56 79 97 04:32 PM 105 55 80 96 04:37 PM 98 55 78 96 04:42 PM 99 56 79 96 04:47 PM 102 54 78 96 04:52 PM 108 60 78 96 04:57 PM 111 62 79 96 03:53 PM 146 75 78 03:57 PM 132 65 77 04:02 PM 121 62 79 94 04:07 PM 123 63 82 97 05:02 PM 104 60 81 97 05:07 PM 120 69 81 96 05:12 PM 134 76 80 97 05:17 PM 133 67 80 98 05:22 PM 122 66 80 98 05:27 PM 133 74 80 98 Procedure Medications Time Medication Dose Units Method Route 03:51 PM Oxygen 2 L/min nasal cannula 03:54 PM Versed 1 mg Intravenous 03:54 PM Fentanyl 50 mcg Intravenous 04:06 PM Lidocaine 2% 10 ml Subcutaneous 04:12 PM Versed 1 mg Intravenous 04:12 PM Fentanyl 50 mcg Intravenous 04:13 PM Lidocaine 2% 10 ml Subcutaneous 04:53 PM Heparin 5000 units Intravenous 05:08 PM Fentanyl 50 mcg Intravenous 05:20 PM Plavix 150 mg Orally ASA Classification: CLASS III- Severe systemic disease (i.e. prior AMI, diabetes with vascular complications, morbid obesity) Darryl Score Preprocedure Postprocedure Activity 2- Moves 4 extremities sustained head lift Activity 2- Moves 4 extremities sustained head lift Circulation 2- SBP +/= 20 points of pre-anesthetic level Circulation 2- SBP +/= 20 points of pre-anesthetic level Consciousness 2- Awake and alert oriented x 3 Consciousness 2- Awake and alert oriented x 3 O2 Saturation 2- Able to maintain O2 satruation of 92% on room air O2 Saturation 2- Able to maintain O2 satruation of 92% on room air Respiratory 2- Able to deep breathe and cough well Respiratory 2- Able to deep breathe and cough well Total Score 10 Total Score 10 Contrast: Isovue 300- 150ml Contrast Amount: 106 ml Fluoro Dose: 497 mGy Procedure Log Time Note Entered By 03:35 PM Vinod Godinez RN Position: Monitor Time in: 15:35 [email or web address] 03:35 PM Fredi Robles RN Position: Film Laboratory Technician [facility]: [facility] PM Valerie Bullock RT (R) Position: Scrub [facility]: 15:[facility] Pt [facility] to foundry laborer coreroom 1 at 15:35 [facility]38 PM ASA Class CLASS III- Severe systemic disease (i.e. prior AMI, diabetes with vascular complications, morbid obesity) [email or web address] 03:47 PM Physician arrived 15:47 [email or web address] 03:47 PM Gregg and kenzie completed [email or web address] 03:47 PM Sign in performed according to hospital policy. [email or web address] 03:47 PM Procedure start 15:47 [email or web address] 03:48 PM Time: 15:48 Is patient comfortable and pain free?: Yes [email or web address] 03:48 PM Time: 15:48LOC: 5 = Fully awake and oriented or at pre-proc level [email or web address] 03:51 PM Hair removed from procedure site in procedure lab using clippers. Bilateral groin prepped with Chloraprep by Valerie Bullock (R), then patient was draped. Skin intact. [email or web address] 03:51 PM 15:51 Oxygen at 2 L/min per nasal cannula by Freid Robles RN 03:54 PM 15:54 Versed 1 mg Intravenous Given by Fredi Robles RN 03:54 PM 15:54 Fentanyl 50 mcg Intravenous Given by Fredi Robles RN 04:05 PM Time: 15:48LOC: 4 = Oriented but drowsy [email or web address] 04:05 PM Time: 15:48 Is patient comfortable and pain free?: Yes [email or web address] 04:06 PM Time out perfomed [email or web address] 04:06 PM Patient charges- Angio tray pack, Pulse Oximetry and ACIST tubing and transducer [email or web address] 04:07 PM 16:06 10 ml Lidocaine 2% to left groin Subcutaneous Given By Tesfaye White MD, FACS britney 04:10 PM Smart Needle utilized for vascular access at this time [email or web address] 04:12 PM 16:12 Versed 1 mg Intravenous Given by Fredi Robles RN 04:12 PM 16:12 Fentanyl 50 mcg Intravenous Given by Fredi Robles RN 04:13 PM 16:13 10 ml Lidocaine 2% to left groin Subcutaneous Given By Tesfaye White MD, FACS [email or web address] 04:16 PM Access obtained in the left femoral artery by percutaneous puncture. 5 Fr. 10 cm Terumo Tupman sheath placed in left femoral artery jcadan 04:17 PM 5Fr Short pigtail catheter inserted [email or web address] 04:19 PM Abdominal aorta angiography performed in AP contrast injected 10/20 mls. [email or web address] 04:20 PM Setting up for stepping [email or web address] 04:21 PM Abdominal angiogram with runoff completed: 6 ml/sec for a total of 60 mls [email or web address] 04:21 PM Time: 16:05 Is patient comfortable and pain free?: Yes [email or web address] 04:21 PM Time: 16:05LOC: 4 = Oriented but drowsy jcallihan 04:26 PM Catheter removed jcallihan 04:29 PM 5Fr Omniflush catheter inserted [email or web address] 04:29 PM Catheter removed jcallihan 04:29 PM Intervention started at this time [email or web address] 04:29 PM Sheath exchanged for a 6 Fr 45 cm Terumo Destination sheath inserted into left femoral artery jcallihan 04:32 PM 5Fr 100cm Glidecath Angled-Taper guide catheter advanced jcallihan 04:32 PM Inflation device jcallihan 04:34 PM 0.035 Glidewire Angled 260cm guidewire advanced. [email or web address] 04:36 PM Time: 16:21 Is patient comfortable and pain free?: Yes [email or web address] 04:36 PM Time: 16:21LOC: 4 = Oriented but drowsy jcallihan 04:44 PM Guide wire removed intact [email or web address] 04:45 PM 0.014 Journey 300cm guidewire advanced. [email or web address] 04:48 PM Guide wire removed intact [email or web address] 04:49 PM 0.014 Victory 14, 30 gram 300cm guidewire advanced. [email or web address] 04:51 PM Time: 16:36 Is patient comfortable and pain free?: Yes [email or web address] 04:52 PM Time: 16:36LOC: 4 = Oriented but drowsy jcallihan 04:53 PM Guide wire removed intact [email or web address] 04:53 PM Long Glidewire re-inserted [email or web address] 04:53 PM 16:53 Heparin 5000 units Intravenous by Fredi Robles RN jcadan 04:56 PM 4.0 mm x 200 mm Trial Consultant balloon catheter placed into right superficial femoral jcallihan 04:58 PM Balloon inflated @ 12 zen for 80 seconds [email or web address] 05:01 PM Balloon inflated @ 12 zen for 60 seconds [email or web address] 05:04 PM Balloon removed intact [email or web address] 05:02 PM 3ml contrast injected jcallihan 05:03 PM 3ml contrast injected jcallihan 05:05 PM 5.0 mm x 150 mm Medtronic drug coated balloon placed into right superficial femoral [id number] jcallihan 05:06 PM Time: 16:51 Is patient comfortable and pain free?: Yes [email or web address] 05:07 PM Time: 16:52LOC: 4 = Oriented but drowsy jcallihan 05:09 PM 17:08 Fentanyl 50 mcg Intravenous Given by Fredi Roblse RN jcadan 05:10 PM Balloon inflated @ 14 zen for 180 seconds [email or web address] 05:13 PM Balloon inflated @ 10 zen for 120 seconds jcallihan 05:15 PM Balloon inflated @ 8 zen for 60 seconds [email or web address] 05:17 PM Balloon removed intact jcadan 05:18 PM 3ml contrast injected [email or web address] 05:20 PM Time: 17:20 Plavix 150 mg Orally Given by Fredi Robles RN jcadan 05:20 PM Guide catheter removed intact [email or web address] 05:20 PM Guide wire removed intact jcadan 05:21 PM Procedure completed at 17:21 [email or web address] 05:21 PM Time: 17:06 Is patient comfortable and pain free?: Yes [email or web address] 05:25 PM Time: 17:07LOC: 4 = Oriented but drowsy [email or web address] 05:25 PM Sign Out completed: Radiation Dose 497 mGy Fluoro Time: 13.6 minutes. Isovue 300- 150ml contrast 106 ml given by Tesfaye White MD, FACS. Complications: None. Confirmed administered medications:Yes [email or web address] 05:26 PM Isovue 300- 150ml, 2 bottle(s) used. [email or web address] 05:27 PM Sheath left in place to be pulled on floor/holding areaV+Pad jcallihan 05:27 PM Estimated Blood Loss: less than 20cc jcallihan 05:27 PM Post Blood Pressure: 122/66 jcallihan 05:27 PM Post EKG: NSR jcallihan 05:27 PM 17:27 Post Pulses: Bilateral DP & PT Doppler. [email or web address] 05:27 PM Information taught: Peripheral angiogram and CONTRACTOR GENERAL ENGINEERING jcallihan 05:29 PM Education needs: Procedure, Plan of Care, and Responsibilities of Patient in Care [email or web address] 05:29 PM Learning barriers: None [email or web address] 05:29 PM Education methods: Verbal jcallihan 05:29 PM Education evaluation: Able to repeat information [email or web address] 05:29 PM Patient pain level 0/10 [email or web address] 05:29 PM Site status No bleeding/hematoma - Lt Groin as reported by Valerie Bullock RT (R) at 17:29 [email or web address] 05:29 PM Opsite applied jcallihan 05:30 PM Family placed in consult room. [email or web address] 05:31 PM Complications: None jcallihan 05:31 PM Fluoro Time: 13.6 minutes [email or web address] 05:31 PM Isovue 300- 150ml contrast 106 ml given by Tesfaye White MD, FACS [facility] 05:31 PM Radiation Dose 497 mGy [email or web address] 05:31 PM Report given to Rizwana PATEL. Pt taken to , Room # 13 17:31 jcallihan 05:32 PM Iona Jeff RN Position: Film Laboratory Technician Time in: 17:32 [email or web address] 05:35 PM Patient out of room 17:35 [email or web address] 05:35 PM Pt taken to Room# 13 [email or web address] 05:37 PM Time: 17:21 Is patient comfortable and pain free?: Yes [email or web address] 03:48 PM PVIStat 03:51 PM Vitals capture started with the following parameters, Patient=Adult, Interval=5 min, Initial Looydlgr=376 mmHg, Deflation Rate=3 mmHg, Cuff placed on Right Arm 03:53 PM HR=78 bpm, UACE=028/75 mmhg, Resp=22 B/min, Comment=nsr 03:57 PM HR=77 bpm, AXYB=805/65 mmhg, Resp=16 B/min, Comment=nsr 04:02 PM HR=79 bpm, ELXS=698/62 mmhg, SpO2=94.0 %, Resp=15 B/min, Comment=nsr 04:07 PM HR=82 bpm, KIOV=566/63 mmhg, SpO2=97.0 %, Resp=9 B/min, Comment=nsr 04:12 PM HR=81 bpm, USXK=803/66 mmhg, SpO2=99.0 %, Resp=11 B/min, Comment=nsr 04:17 PM HR=80 bpm, FQKH=590/59 mmhg, SpO2=94.0 %, Resp=14 B/min, Comment=nsr 04:22 PM HR=79 bpm, ZDRC=816/62 mmhg, SpO2=96.0 %, Resp=17 B/min, Comment=nsr 04:27 PM HR=79 bpm, PJKY=187/56 mmhg, SpO2=97.0 %, Resp=11 B/min, Comment=nsr 04:32 PM HR=80 bpm, ZDIO=561/55 mmhg, SpO2=96.0 %, Resp=13 B/min, Comment=nsr 04:37 PM HR=78 bpm, NIBP=98/55 mmhg, SpO2=96.0 %, Resp=13 B/min, Comment=nsr 04:42 PM HR=79 bpm, NIBP=99/56 mmhg, SpO2=96.0 %, Resp=14 B/min, Comment=nsr 04:47 PM HR=78 bpm, NSHY=380/54 mmhg, SpO2=96.0 %, Resp=14 B/min, Comment=nsr 04:52 PM HR=78 bpm, VTBD=169/60 mmhg, SpO2=96.0 %, Resp=15 B/min, Comment=nsr 04:57 PM HR=79 bpm, LEXC=752/62 mmhg, SpO2=96.0 %, Resp=15 B/min, Comment=nsr 05:02 PM HR=81 bpm, LXLT=794/60 mmhg, SpO2=97.0 %, Resp=16 B/min, Comment=nsr 05:07 PM HR=81 bpm, YYYV=851/69 mmhg, SpO2=96.0 %, Resp=19 B/min, Comment=nsr 05:12 PM HR=80 bpm, VMDL=720/76 mmhg, SpO2=97.0 %, Resp=4 B/min, Comment=nsr 05:17 PM HR=80 bpm, KVJN=768/67 mmhg, SpO2=98.0 %, Resp=14 B/min, Comment=nsr 05:22 PM HR=80 bpm, GGCA=921/66 mmhg, SpO2=98.0 %, Resp=9 B/min 05:27 PM HR=80 bpm, OCXB=402/74 mmhg, SpO2=98.0 %, Resp=8 B/min, Comment=nsr 05:40 PM Diagram Region: Lower Extremity Arteries Anatomical Region: LE-Xnj022% Lesion in Mid Right Superficial Femoral Intervention done: 1 (1=yes, 0=no) [email or web address] 05:41 PM Diagram Region: Lower Extremity Arteries Anatomical Region: LE-Art70% Lesion in Mid Left Superficial Femoral Intervention done: 0 (1=yes, 0=no) [email or web address] 05:42 PM Diagram Region: Lower Extremity Arteries Anatomical Region: LE-Art75% Lesion in Distal Right Ant. Tibial Intervention done: 0 (1=yes, 0=no) [email or web address] 05:42 PM Diagram Region: Lower Extremity Arteries Anatomical Region: LE-Art80% Lesion in Mid Right Peroneal Intervention done: 0 (1=yes, 0=no) [email or web address] 05:43 PM Diagram Region: Lower Extremity Arteries Anatomical Region: LE-Art95% Lesion in Mid Right Post. Tibial Intervention done: 0 (1=yes, 0=no) jcallan 05:43 PM Diagram Region: Lower Extremity Arteries Anatomical Region: LE-Ism962% Lesion in Left Ant. Tibial Intervention done: 0 (1=yes, 0=no) jcallan 05:44 PM Diagram Region: Lower Extremity Arteries Anatomical Region: LE-[id number]% Lesion in Left Post. Tibial Intervention done: 0 (1=yes, 0=no) [facility] Peripheral Anatomy Vessel Pathology Lesion Stenosis Aneurysm Diameter Thrombus Type Right Superficial Femoral Lesion 100 Left Superficial Femoral Lesion 70 Right Ant. Tibial Lesion 75 Right Peroneal Lesion 80 Right Post. Tibial Lesion 95 Left Ant. Tibial Lesion 100 Left Post. Tibial Lesion 100 Peripheral Intervention Anatomical Region:LE-Art Vessel Segment:Undefined Bookmark: [email or web address] Pathology Type:Lesion Pre-Stenosis:100 Post Procedure Information Blood Pressure: 122/66 mmHg Rhythm: NSR Post procedure instructions given Site Checks Time Location Status Staff Sheath In? Note 5:29:00 PM Lt Groin No bleeding/hematoma Valerie Bullock RT (R) Pulses Time Site Pre Procedure Post Procedure Note Bilateral DP & PT Doppler 5:27:00 PM Bilateral DP & PT Doppler Updated by Vinod Godinez RN on 03/12/2018 5:44:11 PM electronically signed on 03/12/2018 5:44:51 PM with status of Final
[2018-03-12] MEDS ORDERED: Insulin LISPRO 300 UNITS/3 ML VIAL SQ SCH ×2 (18:00→21:00)
[2018-03-12] MEDS ORDERED: *HR* Atropine Sulfate 1 MG/10 ML SYRINGE ONE (18:21)
[2018-03-12] MEDS: Melatonin 3 MG TABLET PO SCH (20:01)
[2018-03-13 05:28] LABS: Basophils % 0.7 %; Eosinophils # 0.1 K/mcL (0.0-0.6); Eosinophils % 2.2 %; Hematocrit 37.8 % (35.3-44.9); Hemoglobin 12.6 g/dL (11.5-15.4); Immature Granulocytes % 0.2 % (0-4); Lymphocytes # 1.9 K/mcL (0.6-4.6); Mean Corpuscular HGB Conc 33.3 g/dL (31.6-35.5); Mean Corpuscular Hemoglobin 29.8 pg (28.0-33.3); Mean Corpuscular Volume 89.4 fL (83.0-100.0); Mean Platelet Volume 10.8 fL (9.4-12.4); Monocytes # 0.4 K/mcL (0.0-1.3); Monocytes % 7.3 %; Platelet Count 150 K/mcL (140-400); Red Blood Count 4.23 M/mcL (3.82-4.97); Red Cell Distribution Width 14.3 % (11.5-14.5); Segmented Neutrophils % 54.6 %
[2018-03-13 05:41] LABS: BUN/Creatinine Ratio 19 (6-26); Blood Urea Nitrogen 10 mg/dL (8-23); Carbon Dioxide 26 mEq/L (23-29); Chloride 104 mEq/L (98-107); Glucose 121 mg/dL (70-105); Magnesium 1.6 mg/dL (1.6-2.6); Osmolality,Calculated 288 (280-300); Potassium 4.1 mEq/L (3.5-5.1); Sodium 139 mEq/L (136-145); eGFR For African Americans > 60 (> 60); eGFR For Non-African Americans > 60 (> 60)
[2018-03-13 06:55] VITALS: BP 145/64
[2018-03-13] MEDS ORDERED: Insulin LISPRO 300 UNITS/3 ML VIAL SQ SCH (07:30)
[2018-03-13] MEDS: Folic Acid 1 MG TABLET PO SCH (07:58)
[2018-03-13] MEDS: Cyanocobalamin (B-12) 1,000 MCG TABLET PO SCH (07:58)
[2018-03-13] MEDS: Gabapentin 400 MG CAPSULE PO SCH (07:58)
[2018-03-13] MEDS: amLODIPine 5 MG TABLET PO SCH (07:58)
[2018-03-13] MEDS: Lisinopril 20 MG TABLET PO SCH (07:58)
[2018-03-13] MEDS: Aspirin Enteric Coated 81 MG Tablet PO SCH (07:58)
[2018-03-13] MEDS: Isosorbide MONOnitrate (24 HR) 60 MG TAB.ER.24H PO SCH (07:58)
--- NOTE | 2018-03-13 08:15 | Vascular/Endovas Progress Note ---
Date of Encounter: 03/13/18 Time of Encounter: 08:12 - Assessment and plan (1) Atherosclerosis of right lower extremity with rest pain Current Visit: Yes Status: Acute right leg much improved with significantly improved perfusion patent right SFA angioplasty left groin access site without hematoma patient's right leg ischemia resolved ambulate in hallways this AM--if stable may be discharged today from vascular surgery perspective f/u in 3 weeks in out patient clinic - Subjective Interval history: no complaints overnight. right foot feeling better. right foot warmer. Vital Signs, Last 4 Hours Temp Pulse Resp BP Pulse Ox 03/13/18 06:51 98.6 F 81 18 145/64 94 03/13/18 05:20 81 - Physical Examination General: Present: Conversant, No Apparent Distress Neck: Absent: JVD Cardiac: Present: Reg Rate and Rhythm Neuro: Present: Alert and responsive Vascular: Present: Normal capillary refill, Color/Temperature (warm and pink), Other (doppler signals at right ankle x 3) Skin: Present: No rashes noted on visualized skin Results 03/13/18 04:58 03/13/18 04:58 Lab Results, Last 24 hours 03/12/18 03/13/18 03/13/18 09:20 04:58 04:58 WBC 5.5 Hgb 12.6 Hct 37.8 Plt Count 150 APTT 58.4 H Sodium 139 Potassium 4.1 Chloride 104 Carbon Dioxide 26 BUN 10 Creatinine 0.53 L Glucose 121 H Calcium 9.0 Magnesium 1.6 Consult Discharge Plan - Plan Additional Instructions: continue Plavix indefintely Referrals: Emily Washington CNP [Primary Care Provider] - Tesfaye White MD [Partnered Physician] - (3 weeks)
--- NOTE | 2018-03-13 09:21 | Discharge Summary ---
- NOTES TO OUTPATIENT PROVIDER Notes to Outpatient Provider: Follow-up with Dr. White within the next 2-3 weeks, continue aspirin and Plavix. Follow-up with primary care physician within next week. Can start fish oil to decrease triglycerides Date of Encounter: 03/13/18 Time of Encounter: 09:19 - Discharge Diagnosis (1) Atherosclerosis of right lower extremity with rest pain Priority: Primary Status: Acute Assessment and Plan: severe claudication, improved after patent right SFA angioplasty Qualifiers: Peripheral atherosclerosis artery type: [place] artery Qualified Code(s): I70.221 - Atherosclerosis of [place] arteries of extremities with rest pain, right leg (2) Peripheral vascular disease of extremity with claudication Priority: Primary Status: Acute Assessment and Plan: . (3) Diabetes mellitus Priority: Secondary Status: Acute Qualifiers: Diabetes mellitus type: type 2 Diabetes mellitus medical terminologist insulin use: with retirement use Diabetes mellitus complication status: with circulatory complication Diabetes mellitus complication detail: with peripheral angiopathy without gangrene Qualified Code(s): E11.51 - Type 2 diabetes mellitus with diabetic peripheral angiopathy without gangrene; Z79.4 - buttermaker (current) use of insulin; Z79.4 - buttermaker (current) use of insulin; Z79.4 - buttermaker (current) use of insulin; Z79.4 - buttermaker (current) use of insulin (4) Hypertension Priority: Secondary Status: Acute Qualifiers: Hypertension type: essential hypertension Qualified Code(s): I10 - Essential (primary) hypertension (5) DVT prophylaxis Priority: Secondary Status: Acute Hospital course: Ms. Ruiz is a 63 year old female with a CAD, CVA, diabetes type 2 not insulin- dependent, GERD, hyperlipidemia, hypertension, peripheral artery disease with multiple vascular procedures , came complaining of 2 to three-week history of progressive ischemic rest pain of her right foot. She has undergone prior endovascular intervention for similar symptomatology. 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 She has long-standing diabetes which is fairly uncontrolled. She is currently on dual antiplatelet therapy and a daily statin. Worrisome for ischemic limb. Was started on a heparin drip. Dr. White evaluated the patient and scheduled a vascular procedure. Underwent rug coated balloon angioplasty of right superficial femoral artery. Symptoms improved, stable to be discharged home as per vascular surgery. - Time Spent with Patient Total time spent providing and/or coordinating discharge services: Greater than 30 minutes (40 min) - Discharge Medications Home Medications: Clopidogrel Bisulfate [Plavix] 75 mg PO DAILY 06/23/17 [History] Cyanocobalamin (Vitamin B-12) [Vitamin B-12] 1,000 mg PO DAILY 06/23/17 [History ] Gabapentin [Neurontin] 400 mg PO BID 06/23/17 [History] Lansoprazole [Prevacid] 30 mg PO DAILY 06/23/17 [History] Metoprolol [Lopressor] 12.5 mg PO BID 06/23/17 [History] Nitroglycerin [Nitrostat] 0.4 mg SL Q5-6MIN PRN 06/23/17 [History] glyBURIDE [GlyBURIDE] 5 mg PO DAILY 06/23/17 [History] Amlodipine Besylate 5 mg PO DAILY 11/17/17 [History] Aspirin [Lo-Dose Aspirin EC] 81 mg PO DAILY 11/17/17 [History] Dulaglutide [Trulicity] 0.75 mg SQ QWEEK 11/17/17 [History] Duloxetine HCl [Cymbalta] 60 mg PO DAILY 11/17/17 [History] Folic Acid 1 mg PO DAILY 11/17/17 [History] HydrOXYzine Pamoate [Vistaril] 25 mg PO BID PRN 11/17/17 [History] Insulin Glargine,Hum.rec.anlog [Totodd Solostar] 80 units SQ QPM 11/17/17 [ History] Isosorbide MONOnitrate (24 HR) [Imdur] 60 mg PO DAILY 11/17/17 [History] Lisinopril [Zestril] 20 mg PO DAILY 11/17/17 [History] Melatonin 10 mg PO HS 11/17/17 [History] [place]-3/Dha/Epa/Fish Oil [Fish Oil 1,000 mg Softgel] 1 each PO DAILY 11/17/17 [ History] Pramipexole Di-HCl [Pramipexole Dihydrochloride] 0.5 mg PO HS 11/17/17 [History] HYDROcodone/Acet 5/325 mg [[place] 5-325 mg] 1 tab PO Q4H PRN 2 Days #10 tab 01/17 [Rx] Cyclobenzaprine [Flexeril] 10 mg PO HS 03/11/18 [History] Insulin ASPART [Novolog Flexpen] 0 unit SQ TID PRN 03/11/18 [History] Magnesium Oxide [Mgo] 400 mg PO DAILY 03/11/18 [History] Metformin HCl [Metformin HCl ER] 1,000 mg PO BID 03/11/18 [History] Allergies/Adverse Reactions: 3 Allergy/AdvReac Type Severity Reaction Status Date / Time metformin [From Glucophage] Allergy Hives Verified 03/11/18 08:11 Rosiglitazone [From Avandia] Allergy Hives Verified 03/11/18 08:11 simvastatin [From Zocor] Allergy Hives Verified 03/11/18 08:11 Date of admission: 03/11/18 10:52 Primary care physician: Emily Washington CNP Consults: 03/11/18 11:11 Consult to Retail Brand Ambassador [CONS] Routine Reason for SW Consult: Vascular problems with unknown extent of treatments/ procedures. - Constitutional Vitals: Temp Pulse Resp BP Pulse Ox 98.6 F 81 18 145/64 94 03/13/18 06:51 03/13/18 06:51 03/13/18 06:51 03/13/18 06:51 03/13/18 06:51 General appearance: Present: A&O X 3, pleasant, answers questions appropriately - Head Head exam: Present: atraumatic, normocephalic - Eye Eye exam: Present: PERRL, conjuntiva pink, sclera anicteric Pupils: Present: PERRL - Neck Neck exam general surgery: Present: supple, trachea midline. Absent: lymphadenopathy - Respiratory Respiratory exam: Present: CTAB. Absent: accessory muscle use, rales, rhonchi, wheezes - Cardiovascular Cardiovascular exam: Present: RRR, +S1, +S2. Absent: diastolic murmur, gallop, rubs, systolic murmur - GI/Abdominal GI/Abdominal exam: Present: normal bowel sounds, soft, no peritoneal signs. Absent: distended, tenderness - Extremities Exam Extremities exam: Present: warm, radial pulses palpable and symmetrical. Absent : calf tenderness, cyanotic, pedal edema - Neurological Exam Neurological exam: Present: CN II-XII intact, oriented X3, no focal deficits. Absent: pronater drift, facial droop, speech deficit - Skin Skin exam: Present: dry, intact - Patient Status Disposition: Home, Self-Care Condition: Fair Overall status at discharge: patient is progressing back to baseline - Discharge Instructions Follow Up With: Emily Washington CNP [Primary Care Provider] - Tesfaye White MD [Partnered Physician] - (3 weeks) Additional Instructions: continue Plavix indefintely - Diet and Activity Activity: increase activity as tolerated Diet: diabetic diet
== END 2018-03-13 10:09 | disposition home or self-care (01) | DRG 181 ==
LOC: 3ANU 05:30 → EMEROO 05:30 → 3ANU 09:14 → SUATTDRO 10:52 → 2NNU 03-12 17:39
PROVIDERS: ADMIT Internal Medicine; ATTEND Internal Medicine